=== PATIENT | male | born 1975 | race Caucasian/White ===

== ENCOUNTER 2017-09-17 21:38 | Emergency (ER) | payer OTHER, MEDICARE, SELFPAY ==
[2017-09-17 22:00] VITALS: BP 129/80; PULSE 108; RESP 16; TEMP 37.8; O2SAT 98; BMI 35.5
[2017-09-17 22:30] VITALS: BP 115/76; PULSE 104; RESP 18; O2SAT 94
[2017-09-17] MEDS: predniSONE 20 MG TABLET 40 MG PO (22:39)
[2017-09-17] MEDS: OXYCODONE/APAP 5/325 PREPACK 1 BOTTLE MISC (22:39)
[2017-09-17] MEDS: KETOROLAC 60 MG/2 ML VIAL 30 MG IM (22:40)
[2017-09-17 23:41] VITALS: TEMP 37.1
[2017-09-17 23:43] VITALS: TEMP 37.1
--- NOTE | 2017-09-18 04:26 | ED.BACK ---
HPI - Back Pain/Injury General Chief Complaint: Back Pain/Injury Stated Complaint: STATES BACK IS OUT Time Seen by Provider: 09/17/17 21:50 Source: patient and family Mode of arrival: ambulatory Limitations: no limitations History of Present Illness HPI Narrative: 42-year-old male with longstanding history of back pain presents with an exacerbation of his back pain. He states it feels just like prior episodes and it started acting up when he got out yesterday. He denies any numbness or tingling. He denies radiation of his pain. He denies any trouble with bowel or bladder control. He denies foot drop. He denies fever or chills. He denies midline pain and states that it hurts over his SI joints like normal. He has an upcoming appointment with his spine surgeon the possibility of another surgery. he denies any significant or obvious injury MD Complaint: back pain Onset (ago): day(s) Duration: constant Similar Symptoms Previously: Yes Location: lumbar spine and sacrum Severity: moderate Quality: sharp Radiation: none Severity scale (1-10): 5 Relieving factors: sitting upright Exacerbating factors: walking Context: other ( getting out of bed) Associated symptoms: denies other symptoms Related Data Home Medications Medication Instructions Recorded Confirmed MULTIVITAMIN 1 tab PO TID #0 02/03/16 08/11/17 calcium citrate 500 mg PO TID #0 02/03/16 08/11/17 vitamin B complex [B 2 cap PO QDAY #0 02/03/16 08/11/17 Complex-Vitamin B12] whey protein isolate [Beneprotein] 16 oz PO TID #0 02/03/16 duloxetine [Cymbalta] 20 PO QDAY #0 02/22/16 Previous Rx's Medication Instructions Recorded cholecalciferol (vitamin D3) 12,000 iu PO QDAY 30 Days #0 tab 12/14/16 [Vitamin D3] polysaccharide iron complex 150 mg PO BID #60 cap 12/14/16 [Ferrex 150] oxycodone-acetaminophen [Percocet] 1 tab PO Q4HP PRN #10 tab 04/09/17 prednisone 40 mg PO SEE INSTRUCTIONS #14 tab 04/09/17 Allergies Allergy/AdvReac Type Severity Reaction Status Date / Time NSAIDS (Non-Steroidal Allergy Unknown COULD NOT Unverified 06/21/17 12:22 Anti-Inflamma TAKE PO WHEN HE HAD GASTRIC BYPASS [facility] -FAST IV PUSH AdvReac Unknown DEX @ ER Uncoded 06/21/17 12:22 [facility] BECAME VERY RED/HOT.PINS AND NEEDLES ALL OVER Review of Systems Review of Systems All systems reviewed & are unremarkable except as noted in HPI and below Constitutional Denies chills, Denies fever(s), Denies lethargy and Denies weakness Eyes Denies change in vision, Denies eye discharge, Denies irritation and Denies loss of vision ENT Ears, Nose, Mouth, and Throat: Denies change in voice, Denies neck pain and Denies sore throat Cardiovascular Denies chest pain, Denies irregular heart rhythm, Denies lightheadedness, Denies palpitations, Denies dyspnea, Denies dyspnea on exertion and Denies orthopnea Respiratory Denies cough, Denies dyspnea, Denies dyspnea on exertion and Denies wheezing Gastrointestinal Gastrointestinal: Denies abdominal pain, Denies change in bowel habits, Denies diarrhea, Denies nausea and Denies vomiting Genitourinary Denies hematuria, Denies flank pain, Denies urinary incontinence and Denies urinary urgency Musculoskeletal Reports back pain, Denies myalgias, Denies arthralgias, Reports limited range of motion, Denies muscle cramps, Denies muscle weakness, Denies neck pain and Denies numbness Integumentary/Breasts Denies pruritus, Denies erythema, Denies rash and Denies wounds Neurologic Denies confusion, Denies loss of vision, Denies numbness and Denies weakness Psychiatric Denies anxiety, Denies confusion, Denies depression, Denies homicidal ideation and Denies suicidal ideation Endocrine Denies palpitations Hematologic/Lymphatic Denies easy bruising Allergic/Immunologic Denies wheezing Exam Narrative Exam Narrative: 42-year-old male sitting upright in no obvious significant distress Initial Vital Signs Initial Vital Signs: Vital Signs Temperature 100.0 F H 09/17/17 22:00 Pulse Rate 108 H 09/17/17 22:00 Respiratory Rate 16 09/17/17 22:00 Blood Pressure 129/80 H 09/17/17 22:00 Pulse Oximetry 98 09/17/17 22:00 Const General: cooperative and No acute distress Nutritional Appearance: well nourished Orientation: alert, awake, oriented x3 and not confused HENMD Head: normocephalic and atraumatic Ears: external ears normal and TM's normal bilaterally Nose: external nose normal and No nasal discharge Face and sinus: sinuses nontender, face symmetric, no sinus tenderness and No dry mucous membranes Mouth: oral mucosae normal and moist mucous membranes Teeth and gingiva: dentition normal Throat: tonsils normal and uvula midline Eyes General: appearance normal, both eyes and all related structures Eyelids: eyelids normal Conjunctivae: conjunctivae normal Sclera: sclerae normal Pupils: PERRL EOM: EOM intact bilaterally Resp Effort & Inspection: normal respiratory effort, able to speak in complete sentences, no respiratory distress and no use of accessory muscles Auscultation: clear to auscultation bilaterally, no rales, no rhonchi and no wheezes GI Inspection: non-distended Palpation: soft, no hepatosplenomegaly, No guarding, No pulsatile mass and No tender Auscultation: normal bowel sounds Back/Spine/Pelvis Back: back tenderness Thoracic/Lumbar Spine: No mass, No thoracic spinal tenderness and No lumbar spinal tenderness Sacroiliac Joints: nontender Neuro Gait: antalgic Motor: muscle tone normal throughout Sensory Exam: no sensory deficits noted DTR's: Rt Patellar: 1+ and Lt Patellar: 1+ Extrem General: full ROM, no clubbing, cyanosis or edema, no pedal edema and no calf tenderness Course Orders Ordered: Discontinued Medications Ketorolac Tromethamine (Toradol) 30 mg IM NOW ONE Stop: 09/17/17 22:15 Last Admin: 09/17/17 22:40 Dose: 30 mg Oxycodone/Acetaminophen (Endocet 5/325 Prepack) 1 bottle MISC SEEINSTR ONE Stop: 09/17/17 22:15 Last Admin: 09/17/17 22:39 Dose: 1 bottle Prednisone (Deltasone) 40 mg PO NOW ONE Stop: 09/17/17 22:15 Last Admin: 09/17/17 22:39 Dose: 40 mg Vital Signs - 8 hr 09/17/17 22:00 09/17/17 22:30 09/17/17 23:41 Temperature 100.0 F H 98.8 F Pulse Rate 108 H 104 H Respiratory Rate 16 18 Blood Pressure 129/80 H Blood Pressure [Left Arm] 115/76 Pulse Oximetry 98 94 09/17/17 23:43 Temperature 98.8 F Pulse Rate Respiratory Rate Blood Pressure Blood Pressure [Left Arm] Pulse Oximetry MDM - Back Pain/Injury Differential Diagnosis Differential diagnosis: Likely lumbar radiculopathy, sciatica, strain of lumbar region, renal colic, pyelonephritis, thoracic back pain, AAA and discitis Medical Records Attestation: I reviewed the patient's medical records. Lab Data Attestation: I reviewed the patient's lab results. Discharge Plan Departure Patient Disposition: Home, Self-Care Clinical Impression: Back pain Discharge Date/Time: 09/17/17 22:30 Interventions: ED Discharge Assessment Last Done: 09/17/17 23:43 Instructions: Back Pain (Alternative Therapy) Activity Restrictions/Additional Instructions: *You have been diagnosed with [ acute on chronic low back pain ] *What to do: *Take medications as directed *Follow up with your primary care provider in 2-3 days *Return to ER if you should have any new, worsening or concerning symptoms Prescriptions: No Action MULTIVITAMIN 1 tab PO TID Qty: 0 RF: 0 calcium citrate 250 MG tablet 500 mg PO TID Qty: 0 RF: 0 vitamin B complex [B Complex-Vitamin B12] 1 EACH tablet 2 cap PO QDAY Qty: 0 RF: 0 whey protein isolate [Beneprotein] 227 GM powder 16 oz PO TID Qty: 0 RF: 0 duloxetine [Cymbalta] 60 mg Capsule,Delayed Release(Dr/Ec) 20 PO QDAY Qty: 0 RF: 0 cholecalciferol (vitamin D3) [Vitamin D3] 1,000 UNIT tablet 12,000 iu PO QDAY 30 Days Qty: 0 RF: 0 polysaccharide iron complex [Ferrex 150] 150 MG capsule 150 mg PO BID Qty: 60 RF: 2 prednisone 20 MG tablet 40 mg PO SEE INSTRUCTIONS Qty: 14 RF: 0 oxycodone-acetaminophen [Percocet] 5 MG/325 MG tablet 1 tab PO Q4HP PRNQty: 10 RF: 0
== END 2017-09-17 22:30 | disposition home or self-care (01) ==
PROVIDERS: Emergency Provider Emergency Medicine; Family Provider Internal Medicine; PCP Internal Medicine
DX: M54.9 Dorsalgia, unspecified (principal)
CPT/HCPCS: 81003; 96372; 99282; 99283; J1885

== ENCOUNTER → 2017-11-02 13:43 | Outpatient (CLI) | payer OTHER, MEDICARE, SELFPAY ==
[2017-11-02 13:58] LABS: Add Manual Diff / Slide Review NO; Basophils Percent Auto 0.7 % (0-2); Eosinophils Percent Auto 3.3 % (2-4); Hematocrit 34.4 % (41-53); Hemoglobin 11.3 g/dL (13.5-17.5); Lymphocytes Percent Auto 18.6 % (25-40); Mean Corpuscular HGB Conc 32.9 % (30-36); Mean Corpuscular Hemoglobin 27.4 PG (26-34); Mean Corpuscular Volume 83.2 fL (80-100); Monocytes Percent Auto 8.9 % (3-14); Neutrophils Absolute Auto 3900 /uL (3000-5900); Neutrophils Percent Auto 68.5 % (50-75); Platelet Count 232 X10^3/uL (150-400); Red Blood Cell Count 4.14 X10^6/uL (4.5-5.9); Red Cell Distribution Width 15.9 % (11.6-14.8); White Blood Cell Count 5.7 X10^3/uL (4.5-11.0)
[2017-11-02 14:09] LABS: Alanine Aminotransferase 27 IU/L (21-72); Albumin 3.8 g/dL (3.5-5.0); Albumin Globulin Ratio 1.5 (1.0-2.8); Alkaline Phosphatase 116 U/L (38-126); Aspartate Aminotransferase 21 IU/L (17-59); BUN Creatinine Ratio 17.1 (6-22); Bilirubin Total 1.1 mg/dL (0.2-1.3); Blood Urea Nitrogen 12 mg/dL (9-20); Calcium 8.4 mg/dL (8.4-10.2); Carbon Dioxide 25 mmol/L (22-32); Chloride 105 mmol/L (98-107); Estimated Glomerular Filt Rate > 60.0 mL/min (>60); Globulin 2.5 g/dL (1.7-4.1); Glucose 103 mg/dL (70-100); HEMOLYSIS < 15 (0-50); Potassium 4.1 mmol/L (3.4-5.1); Sodium 138 mmol/L (137-145); Total Protein 6.3 g/dL (6.3-8.2)
[2017-11-02 14:30] LABS: HEMOLYSIS < 15 (0-50); Iron 58 ug/dL (49-181)
[2017-11-02 14:40] LABS: Percent Iron Saturation 14 % (20-50); Total Iron Binding Capacity 422 ug/dL (261-462); Transferrin 353 mg/dL (206-381)
== END ==
PROVIDERS: Family Provider Internal Medicine; PCP Internal Medicine; Visit Provider Nurse Practitioner Gerontology
DX: D50.9 Iron deficiency anemia, unspecified (principal)
CPT/HCPCS: 36415; 80053; 83540; 83550; 85025

== ENCOUNTER → 2019-07-17 16:02 | Outpatient (CLI) | payer OTHER, SELFPAY ==
[2019-07-17 17:02] LABS: Add Manual Diff / Slide Review NO; Basophils Absolute Auto 100 /uL (0-100); Basophils Percent Auto 0.7 % (0-2); Eosinophils Absolute Auto 200 /uL (0-450); Eosinophils Percent Auto 2.9 % (2-4); Hematocrit 34.2 % (41-53); Lymphocytes Absolute Auto 1300 /uL (1100-4500); Lymphocytes Percent Auto 17.4 % (25-40); Mean Corpuscular HGB Conc 32.3 % (30-36); Mean Corpuscular Hemoglobin 27.2 PG (26-34); Mean Corpuscular Volume 84.1 fL (80-100); Monocytes Absolute Auto 600 /uL (0-900); Monocytes Percent Auto 8.2 % (3-14); Neutrophils Absolute Auto 5100 /uL (1500-7000); Neutrophils Percent Auto 70.8 % (50-75); Platelet Count 284 X10^3/uL (150-400); Red Blood Cell Count 4.07 X10^6/uL (4.5-5.9); Red Cell Distribution Width 16.4 % (11.6-14.8); White Blood Cell Count 7.2 X10^3/uL (4.5-11.0)
[2019-07-17 17:14] LABS: Alanine Aminotransferase 28 IU/L (<50); Albumin 4.3 g/dL (3.5-5.0); Albumin Globulin Ratio 1.6 (1.0-2.8); Alkaline Phosphatase 115 U/L (38-126); Aspartate Aminotransferase 32 IU/L (17-59); Blood Urea Nitrogen 15 mg/dL (9-20); Calcium 8.4 mg/dL (8.4-10.2); Carbon Dioxide 23 mmol/L (22-32); Chloride 109 mmol/L (98-107); Estimated Glomerular Filt Rate > 60.0 mL/min (>60); Globulin 2.7 g/dL (1.7-4.1); Glucose 95 mg/dL (70-100); HEMOLYSIS < 15 (0-50); Potassium 4.8 mmol/L (3.4-5.1); Sodium 140 mmol/L (137-145)
[2019-07-17 17:36] LABS: Iron 41 ug/dL (49-181)
[2019-07-17 17:45] LABS: Total Iron Binding Capacity 538 ug/dL (261-462)
[2019-07-17 17:50] LABS: Ferritin 8 ng/mL (18-464)
[2019-07-17 18:20] LABS: Folate 6.9 ng/mL (2.76-20.0); Vitamin B12 469 pg/mL (239-931)
== END ==
PROVIDERS: Family Provider Internal Medicine; Referring Provider Family Medicine; Visit Provider Family Medicine
DX: E53.9 Vitamin B deficiency, unspecified (principal); D50.8 Other iron deficiency anemias
CPT/HCPCS: 36415; 80053; 82607; 82728; 82746; 83540; 83550; 85025

== ENCOUNTER → 2021-12-23 12:07 | Outpatient (CLI) | payer OTHER, SELFPAY ==
--- NOTE | 2021-12-23 | DI.RAD.S_ITS ---
PROCEDURE: FL SHOULDER INJECTION MR/CT RT INDICATIONS: Strain of muscle(s) and tendon(s) of the rotator cuff COMPARISON: [facility], CT, CT UPPER EXT RIGHT ARTHROGRAM, 12/23/2021, 13:27. TECHNIQUE: The indications, alternatives, benefits, risks, and complications of the procedure were explained to the patient. Written informed consent was obtained and placed in the chart. The shoulder was examined fluoroscopically and a site for needle placement chosen for entry into the glenohumeral joint from an anterior approach. The skin was prepped and draped in a sterile fashion, and 1% lidocaine infiltrated from skin down to joint capsule. A spinal needle was inserted into the glenohumeral joint, and a small amount of iodinated contrast media injected to confirm intra-articular placement of the needle tip. This was followed by approximately 12 mL of iodinated contrast. The needle was removed and a dressing was applied. The patient was given postprocedural instructions and sent to the CT suite for imaging. FINDINGS: A single fluoroscopic spot image demonstrates intra-articular location of injected iodinated contrast. IMPRESSION: Successful fluoroscopically guided administration of iodinated contrast solution into the right shoulder joint for CT arthrogram. Right shoulder arthroplasty. Dictated by: Demarcus Delgado M.D. on 12/23/2021 at 15:42 Approved by: Demarcus Delgado M.D. on 12/23/2021 at 15:44
--- NOTE | 2021-12-23 | DI.CT.S_ITS ---
PROCEDURE: CT UPPER EXT RIGHT ARTHROGRAM INDICATIONS: Strain of muscle(s) and tendon(s) of the rotator cuff of rig TECHNIQUE: After the intra-articular administration of 12 mL of dilute non-ionic contrast, 1-1.5 mm thick sections acquired from the acromioclavicular joint to the inferior scapula, with coronal and sagittal reformatting. COMPARISON: None. FINDINGS: Image quality: Diagnostic, significant beam hardening artifacts are seen from shoulder prosthesis.. Bones: There is prior right shoulder arthroplasty. Shoulder alignment is anatomic. No acute fracture or dislocation. No gross hardware loosening or failure. Mild to moderate acromioclavicular joint osteoarthritic changes are seen with joint space narrowing and subchondral sclerosis. No suspicious intraosseous lesion. Visualized right upper ribs are intact. Soft tissues: There is no full-thickness rotator cuff tendon rupture. No contrast is seen extending to acromioclavicular joint. Sagittal images shows no significant muscle atrophy. No abnormal soft tissue calcifications are seen. No gross intra-articular loose bodies. There is no axillary lymphadenopathy by size criteria. Visualized right lung field shows right basilar atelectasis. IMPRESSION: 1. Prior right shoulder arthroplasty with postsurgical changes. Shoulder alignment is anatomic. No acute fracture or dislocation. No evidence of hardware loosening or failure. Mild acromioclavicular joint osteoarthritis. 2. No gross full-thickness rotator cuff tendon rupture. No muscle atrophy is seen. No abnormal soft tissue calcifications. 3. Incidentally noted of right basilar atelectasis suggest clinical correlation. No pleural effusion or pneumothorax. Dictated by: Ramos Patel M.D. on 12/23/2021 at 16:26 Approved by: Ramos Patel M.D. on 12/23/2021 at 16:29
== END ==
PROVIDERS: Family Provider Internal Medicine; PCP Internal Medicine; Referring Provider Internal Medicine; Visit Provider Internal Medicine
DX: S46.011A Strain of muscle(s) and tendon(s) of the rotator cuff of right shoulder, initial encounter (principal); M19.011 Primary osteoarthritis, right shoulder; Z96.611 Presence of right artificial shoulder joint
CPT/HCPCS: 23350; 73201; 77002

== ENCOUNTER 2023-08-14 21:46 | Emergency (ER) | payer OTHER, SELFPAY ==
[2023-08-14 21:51] VITALS: BP 132/96; PULSE 85; RESP 16; TEMP 36.6; O2SAT 94; BMI 39.5
--- NOTE | 2023-08-14 23:20 | ED_ITS ---
HPI - Extremity Problem General Chief complaint: Extremity Problem,Nontraumatic Stated complaint: Left arm blood clot Time Seen by Provider: 08/14/23 23:15 Source: patient Mode of arrival: Ambulatory History of Present Illness HPI Narrative: Patient is a 48-year-old male here for evaluation of a cord like structure in his left forearm that is somewhat tender to palpation. He states the symptoms do get worse and then get better although there is always a structure in this area. He was seen his primary doctor. Had a outpatient ultrasound performed at another facility earlier today. He stated that he was told by the mortuary technician that there was a blood clot in this area. Per his report the mortuary technician contacted his primary doctor who told the patient that he should get into see his office tomorrow and should be started on blood thinners. He comes in the emergency department today because he then contacted his insurance company who recommended that he come to the emergency department. He denies any fevers. No chest pain. No shortness of breath. No trauma. Related Data Home Medications Medication Instructions Recorded Confirmed MULTIVITAMIN 1 tab PO TID ##0 02/03/16 04/19/21 calcium citrate 500 mg PO TID ##0 02/03/16 04/19/21 vitamin B complex (B 2 cap PO QDAY ##0 02/03/16 04/19/21 Complex-Vitamin B12 tablet) Previous Rx's Medication Instructions Recorded cholecalciferol (vitamin D3) 25 12,000 iu PO QDAY 30 days #0 tabs 12/14/16 mcg (1,000 unit) tablet (Vitamin D3) polysaccharide iron complex 150 mg 150 mg PO BID #60 caps 12/14/16 iron capsule (Ferrex) Allergies Allergy/AdvReac Type Severity Reaction Status Date / Time NSAIDS (Non-Steroidal Allergy Unknown COULD NOT Verified 08/14/23 21:51 Anti-Inflamma TAKE PO WHEN HE HAD GASTRIC BYPASS fentanyl AdvReac Severe Hallucinati Verified 08/14/23 21:51 ng gabapentin AdvReac Severe Hallucinati Verified 08/14/23 21:51 ng Review of Systems Constitutional Constitutional: Reports system reviewed and no additional complaints, except as documented Musculoskeletal Musculoskeletal: Reports system reviewed and no additional complaints, except as documented Integumentary/Breasts Skin/Breast: Reports system reviewed and no additional complaints, except as documented Neurologic Neurologic: Reports system reviewed and no additional complaints, except as documented Patient History Social History Smoking Status: Never smoker Smoking Status: Never smoker alcohol intake frequency: a few times a week Alcohol type: beer Substance Use Type: does not use Exam Initial Vital Signs Initial Vital Signs: Vital Signs Temperature 97.9 F 08/14/23 21:51 Pulse Rate 85 08/14/23 21:51 Respiratory Rate 16 08/14/23 21:51 Blood Pressure 132/96 H 08/14/23 21:51 Pulse Oximetry 94 08/14/23 21:51 Oxygen Delivery Method Room Air 08/14/23 21:51 Skin General: no rashes or lesions noted Neuro Sensory Exam: no sensory deficits noted Extrem Other: Patient does have a cord like structure on the ulnar aspect of the left mid forearm. It is somewhat tender to palpation. The overlying skin is u nremarkable. This cord like structures does not move with flexion-extension of the left wrist. Course Orders Ordered: ED Orders 08/14/23 23:30 US periph venous up extrem lt Stat Vital Signs Vital signs: Vital Signs - 8 hr 08/14/23 21:51 Temperature 97.9 F Pulse Rate 85 Respiratory Rate 16 Blood Pressure 132/96 H Pulse Oximetry 94 Oxygen Delivery Method Room Air MDM - Extremity (Nontraumatic) Imaging Data US - DVT: Radiologist's Impression: PROCEDURE: US PERIPH VENOUS UP EXTREM LT INDICATIONS: eval for DVT TECHNIQUE: Real-time imaging, as well as color and pulse Doppler interrogation, was performed of the upper extremity deep veins from the inferior neck to the antecubital fossa. COMPARISON: None. FINDINGS: The internal jugular vein, visualized portions of the subclavian vein, axillary, and brachial veins are free of intraluminal thrombus. Where physically possible, the veins are normally compressible. Color and pulse Doppler demonstrate normal intraluminal flow, with expected phasicity and pulsatility. Additional s ester of the cephalic and basilic veins of the superficial system demonstrates normal compressibility, without thrombus. IMPRESSION: No findings of upper extremity deep venous thrombosis can be seen. MDM Narrative Medical decision making narrative: Ultrasound today does not show any signs of a DVT. Patient does not require blood thinners. I am unsure what this cord like structure in his forearm is. It does not appear to be an infection. It is not a blood clot. It does not appear to be tendons. Potentially it is a cyst has a does have some nodularity to it. There was no indication for antibiotics. Recommended that he contact his primary doctor to discuss follow-up and any potential further imaging. He expressed understanding and agreement. Discharge Plan Departure Patient Disposition: Home Clinical Impression: Mass of left forearm Activity Restrictions/Additional Instructions: Your ultrasound today did not show any signs of a blood clot. I am unsure as to exactly what this mass/cord like structure is in your forearm however given your exam today and the fact that it has been present for the past several weeks am very reassured that this is not an emergent issue. I recommend that you talk with your primary doctor about further evaluation and treatment. Prescriptions: No Action MULTIVITAMIN 1 tab PO TID Qty: 0 calcium citrate 250 MG tablet 500 mg PO TID Qty: 0 vitamin B complex [B Complex-Vitamin B12] 1 EACH tablet 2 cap PO QDAY Qty: 0 cholecalciferol (vitamin D3) [Vitamin D3] 1,000 UNIT tablet 12,000 iu PO QDAY 30 Days Qty: 0 0RF polysaccharide iron complex [Ferrex 150] 150 MG capsule 150 mg PO BID Qty: 60 2RF Referrals: Manjit Houston MD [Primary Care Provider] - Stand Alone Forms: Patient Portal/API
--- NOTE | 2023-08-14 23:30 | DI.US.S_ITS ---
PROCEDURE: US PERIPH VENOUS UP EXTREM LT INDICATIONS: eval for DVT TECHNIQUE: Real-time imaging, as well as color and pulse Doppler interrogation, was performed of the upper extremity deep veins from the inferior neck to the antecubital fossa. COMPARISON: None. FINDINGS: The internal jugular vein, visualized portions of the subclavian vein, axillary, and brachial veins are free of intraluminal thrombus. Where physically possible, the veins are normally compressible. Color and pulse Doppler demonstrate normal intraluminal flow, with expected phasicity and pulsatility. Additional scanning of the cephalic and basilic veins of the superficial system demonstrates normal compressibility, without thrombus. IMPRESSION: No findings of upper extremity deep venous thrombosis can be seen. Approved by: Biju Ferris M.D. on 08/15/2023 at 2:34
[2023-08-15] VITALS (11 sets, daily range): BP systolic 118–158; BP diastolic 67–86; PULSE 70–80; RESP 18; O2SAT 91–100
== END 2023-08-15 02:52 | disposition home or self-care (01) ==
PROVIDERS: Emergency Provider Emergency Medicine; Family Provider Internal Medicine; PCP Internal Medicine
DX: R22.32 Localized swelling, mass and lump, left upper limb (principal)
CPT/HCPCS: 93971; 99281; 99283